=== PATIENT | female | born 1985 | race Caucasian/White ===

== ENCOUNTER 2017-05-21 20:50 | Emergency (ER) | payer MEDICAID ==
[~2017-05-21] VITALS: Ht 149.9 cm; Wt 47.2 kg
[2017-05-21 21:08] VITALS: Ht 149.9 cm; Wt 47.2 kg
[2017-05-22 00:03] VITALS: BP 105/70
== END 2017-05-22 00:03 | disposition home or self-care (01) ==
LOC: ED 20:50
DX: R10.30 Lower abdominal pain, unspecified (principal)

== ENCOUNTER 2017-09-19 16:14 | Emergency (ER) | payer MEDICAID ==
[~2017-09-19] VITALS: Ht 149.9 cm; Wt 44.5 kg
[~2017-09-19 16:14] MED LIST: FER300 PO; VITC PO
[2017-09-19 16:20] VITALS: Ht 149.9 cm; Wt 44.5 kg
[2017-09-19 18:24] VITALS: BP 106/68
== END 2017-09-19 18:24 | disposition home or self-care (01) ==
LOC: ED 16:14
DX: O03.4 Incomplete spontaneous abortion without complication (principal); Z98.890 Other specified postprocedural states

== ENCOUNTER 2020-02-15 12:30 | Emergency (ER) | payer MEDICAID ==
[~2020-02-15] VITALS: Ht 149.9 cm; Wt 49.0 kg
[2020-02-15 13:16] VITALS: Ht 149.9 cm; Wt 49.0 kg
[2020-02-15 16:11] LABS: CARBON DIOXIDE 28.3 mmol/L (21-32); CHLORIDE SERUM 106 mmol/L (98-107); CREATININE SERUM 0.7 mg/dL (0.6-1.0); GFR1 > 60 mL/min; GLUCOSE SERUM 89 mg/dL (74-106); POTASSIUM SERUM 3.9 mmol/L (3.5-5.1); SODIUM SERUM 140 mmol/L (136-145)
[2020-02-15 16:12] LABS: BASOPHIL % 0.3 % (0-2); PLATELET COUNT 228 x10^3mcL (130-400); RED CELL DISTRIBUTION WIDTH 13.9 % (11.5-14.5)
[2020-02-15 16:16] LABS: ALBUMIN 3.8 g/dL (3.4-5.0); ALKALINE PHOSPHATASE 67 U/L (46-116); ALT/SGPT 24 U/L (14-59); AST/SGOT 20 U/L (15-37); BILIRUBIN TOTAL 0.6 mg/dL (0.20-1.00); TOTAL PROTEIN, SERUM 7.6 g/dL (6.4-8.2)
[2020-02-15 16:55] VITALS: BP 108/60
== END 2020-02-15 16:55 | disposition home or self-care (01) ==
LOC: ED 12:30
PROVIDERS: Specialist
DX: N93.9 Abnormal uterine and vaginal bleeding, unspecified (principal); Z86.2 Personal history of diseases of the blood and blood-forming organs and certain disorders involving the immune mechanism; Z98.890 Other specified postprocedural states